=== PATIENT | male | born 1970 | race Caucasian/White ===

== ENCOUNTER → 2024-04-22 09:25 | Outpatient (REF) | payer BC, SELFPAY ==
[2024-04-22 10:38] LABS: % Basophils 0.8 % (0-2); % Eosinophils 1.9 % (0-6); % Immature Granulocytes 0.6 % (0-0.5); % Lymphocytes 27.3 % (20.5-51.1); % Monocytes 6.5 % (1.7-9.3); % Neutrophils 62.9 % (42.2-75.2); Absolute Basophils 0.1 10^3/uL (0-0.2); Absolute Eosinophils 0.1 10^3/uL (0-0.7); Absolute Lymphocytes 1.7 10^3/uL (1.2-3.4); Absolute Monocytes 0.4 10^3/uL (0.1-0.6); Hematocrit 45.4 % (39.0-52.0); Hemoglobin 15.3 g/dL (13.0-18.0); Mean Corp Hgb Conc. 33.7 g/dL (33.0-37.0); Mean Corpuscular Hgb 29.7 pg (27.0-31.0); Mean Platelet Volume 9.8 fL (7.4-10.4); Nucleated Red Blood Cells % 0 % (-); Platelet Count 209 10^3/uL (130-400); Red Blood Cell Count 5.16 10^6/uL (4.70-6.10); Red Cell Dist. Width 12.7 % (11.5-14.5); White Blood Cell Count 6.3 10^3/uL (4.8-10.8)
[2024-04-22 11:02] LABS: Erythrocyte Sed Rate 9 mm/hour (0-20)
[2024-04-22 11:45] LABS: ALT (SGPT) 29 U/L (0-50); AST (SGOT) 34 U/L (17-59); Albumin 4.9 g/dl (3.5-5.0); Alkaline Phosphatase 57 U/L (38-126); Blood Urea Nitrogen 21 mg/dl (9-20); Calcium 9.7 mg/dl (8.4-10.2); Carbon Dioxide 27 mmol/L (22-30); Chloride 104 mmol/L (98-107); Glucose 93 mg/dl (70-99); HDL Cholesterol 44 mg/dl; LDL Cholesterol, Calculated 201 mg/dl; Potassium 4.6 mmol/L (3.5-5.1); Sodium 141 mmol/L (135-145); Total Bilirubin 0.7 mg/dl (0.2-1.3); Total Cholesterol 279 mg/dl (50-199); Total Protein 7.7 g/dl (6.3-8.2); Triglyceride 170 mg/dl (10-149); Very Low Density Lipoprotein 34 mg/dl (0-30); eGFR > 60.00
[2024-04-22 11:59] LABS: C-Reactive Protein < 5.00 mg/L (0.0-10.00)
[2024-04-22 12:29] LABS: PSA, Total - Screen 0.43 ng/ml (0.0-4.0); TSH Reflex To Free T4 3.45 uIU/ml (0.47-4.68)
[2024-04-23 14:32] LABS: Rheumatoid Agglutinin Less Than 10 IU (<10 IU)
[2024-04-23 15:51] LABS: Lyme Antibody Screen, EIA Negative (Negative)
[2024-04-24 19:24] LABS: ANA, IgG Reflex to HEp-2 Detected (None Detected)
== END ==
LOC: REG 09:25
PROVIDERS: ATTENDING PHYSICIAN Physician Assistant; FAMILY PHYSICIAN Internal Medicine
DX: M25.522 Pain in left elbow (principal); R58 Hemorrhage, not elsewhere classified; M79.89 Other specified soft tissue disorders; R51.9 Headache, unspecified; Z12.5 Encounter for screening for malignant neoplasm of prostate; J30.1 Allergic rhinitis due to pollen; E78.2 Mixed hyperlipidemia; R09.89 Other specified symptoms and signs involving the circulatory and respiratory systems
CPT/HCPCS: 36415; 80053; 80061; 84443; 85025; 85652; 86038; 86140; 86430; 86618; 86666; G0103

== ENCOUNTER → 2024-11-06 09:41 | Outpatient (REF) | payer BC, SELFPAY ==
[2024-11-06 10:32] LABS: HDL Cholesterol 38 mg/dl; LDL Cholesterol, Calculated 113 mg/dl; Total Cholesterol 175 mg/dl (50-199); Triglyceride 122 mg/dl (10-149); Very Low Density Lipoprotein 24 mg/dl (0-30)
== END ==
LOC: REG 09:41
PROVIDERS: ATTENDING PHYSICIAN Internal Medicine
DX: E78.2 Mixed hyperlipidemia (principal)
CPT/HCPCS: 36415; 80061

== ENCOUNTER → 2025-04-29 07:22 | Outpatient (REF) | payer OTHER, SELFPAY ==
[2025-04-29 08:38] LABS: Albumin 4.9 g/dl (3.5-5.0); Blood Urea Nitrogen 20 mg/dl (9-20); Calcium 9.7 mg/dl (8.4-10.2); Carbon Dioxide 26 mmol/L (22-30); Chloride 106 mmol/L (98-107); Glucose 102 mg/dl (70-99); Potassium 5.1 mmol/L (3.5-5.1); Sodium 140 mmol/L (135-145); eGFR > 60.00
== END ==
LOC: REG 07:22
PROVIDERS: ATTENDING PHYSICIAN Internal Medicine
DX: I10 Essential (primary) hypertension (principal)
CPT/HCPCS: 36415; 80069